=== PATIENT | male | born 2000 | race Caucasian/White ===

== ENCOUNTER 2024-01-27 12:03 | Emergency (ER) | payer SELFPAY ==
[~2024-01-27] VITALS: Ht 185.4 cm; Wt 127.0 kg
[2024-01-27] MEDS ORDERED: IBUPROFEN 600 MG TABLET ONE (12:42)
[2024-01-27] MEDS: IBUPROFEN 600 MG TABLET PO ONE (12:46)
[2024-01-27] MEDS ORDERED: IBUP-1953 PO (13:08)
[2024-01-27 13:47] VITALS: BP 135/85; TEMP 98; O2SAT 98
== END 2024-01-27 13:53 | disposition home or self-care (01) ==
LOC: ER 12:15
DX: J06.9 Acute upper respiratory infection, unspecified (principal); B97.89 Other viral agents as the cause of diseases classified elsewhere; R07.89 Other chest pain; Z20.822 Contact with and (suspected) exposure to COVID-19
CPT/HCPCS: 71045-TC